=== PATIENT | female | born 1980 | race Caucasian/White ===

== ENCOUNTER 2016-09-02 21:24 | Emergency (ER) | payer BC ==
[2016-09-02 22:39] VITALS: BP 134/67
[2016-09-02] MEDS ORDERED: Lidocaine 2% PF * 5 ML VIAL INJ ONE (23:21)
[2016-09-02] MEDS ORDERED: DOXYcycline CAP(*) 100 MG PO ONE (23:21)
--- NOTE | 2016-09-02 23:34 | UC ---
Skin Complaint HPI - HPI Summary HPI Summary: got a tick on her right lower leg while at [place] today. Got the tick off but now still has the head embedded. Requests prophylaxis. - History of Current Complaint Chief Complaint: UCSkin Time Seen by Provider: 09/02/16 22:40 Stated Complaint: TICK Hx Obtained From: Patient Hx Last Menstrual Period: on seasonique Onset/Duration: Sudden Onset, Lasting Hours, Still Present Skin Exposure Onset/Duration: Hours Ago Timing: Constant Onset Severity: Moderate Current Severity: Moderate Pain Intensity: 0 Pain Scale Used: 0-10 Numeric Location: Discrete - right ant tibia Aggravating: Nothing Alleviating: Nothing Associated Signs & Symptoms: Negative: Tenderness, Red Streaks, Joint Swelling Related History: Possible Reaction to: Insect - tick - Allergy/Home Medications Allergies/Adverse Reactions: Allergies Allergy/AdvReac Type Severity Reaction Status Date / Time Penicillins [PCN] Allergy Nausea And Verified 09/02/16 22:06 Vomiting Home Medications: Home Medications Eletriptan Hydrobromide [Relpax] 20 mg PO ONCE PRN 09/02/16 [History Confirmed 09/02/16] Levonorgestrel-Ethinyl Estradi [Seasonique] 1 tab PO DAILY 09/02/16 [History Confirmed 09/02/16] Levothyroxine TAB* [Synthroid TAB*] 50 mcg PO DAILY 09/02/16 [History Confirmed 09/02/16] Topiramate [Topamax 200 mg tab] 225 mg PO DAILY 09/02/16 [History Confirmed ] ValACYclovir (*) [Valtrex 500 mg (*)] 500 mg PO DAILY 09/02/16 [History Confirmed 09/02/16] Review of Systems Constitutional: Negative Skin: Other - tick head embedded Eyes: Negative ENT: Negative Respiratory: Negative Cardiovascular: Negative Gastrointestinal: Negative Genitourinary: Negative Motor: Negative Neurovascular: Negative Musculoskeletal: Negative Neurological: Negative Psychological: Negative All Other Systems Reviewed And Are Negative: Yes PMH/Surg Hx/FS Hx/Imm Hx Previously Healthy: Yes - Surgical History Surgical History: Yes Surgery Procedure, Year, and Place: Breast reduction. Gastric Bypass. T&A - Family History Known Family History: Positive: Hypertension - Social History Occupation: Employed Full-time Lives: With Family Alcohol Use: Rare Substance Use Type: None Smoking Status (MU): Never Smoked Tobacco Physical Exam Triage Information Reviewed: Yes Appearance: Well-Appearing, No Pain Distress, Obese Vital Signs: Initial Vital Signs Temp 98.3 F 09/02/16 22:02 Pulse 93 09/02/16 22:02 Resp 14 09/02/16 22:02 BP 134/67 09/02/16 22:02 Pulse Ox 100 09/02/16 22:02 elevated BP noted Vital Signs Reviewed: Yes Eyes: Positive: Conjunctiva Clear Neck: Positive: Supple, Nontender Respiratory: Positive: No respiratory distress Cardiovascular: Positive: RRR, Pulses Normal, Brisk Capillary Refill Musculoskeletal: Positive: Strength Intact, ROM Intact Neurological: Positive: Alert, Muscle Tone Normal Psychological: Positive: Normal Response To Family Skin: Positive: Other - tick head embedded right ant tibia Course/Dx - Course Course Of Treatment: Procedure: Time out completed. Sterile technique 2% lidocaine local injection. #18 G needle and splinter forceps used to remove tick head with success. - Differential Diagnoses - Skin Complaint Differential Diagnoses: Other - foreign body removal tick exposure - Diagnoses Provider Diagnoses: tick head removal. tick exposure Discharge - Discharge Plan Condition: Stable Disposition: HOME Patient Education Materials: Lyme Disease (ED), Tick Bite (ED) Referrals: Non Staff,Doctor [Primary Care Provider] - Additional Instructions: You were given doxycycline 200mg orally as Lyme disease prophylaxis for your tick exposure. Remember to tell any provider that you had a tick exposure if you have any unexplained joint pains or rash or viral syndrome symptoms. Return to urgent care if you have any new or worsening symptoms.
== END 2016-09-03 00:07 | disposition home or self-care (01) ==
LOC: UCCORT 21:24
DX: S80.861A Insect bite (nonvenomous), right lower leg, initial encounter (principal); W57.XXXA Bitten or stung by nonvenomous insect and other nonvenomous arthropods, initial encounter; Y93.9 Activity, unspecified; Y92.9 Unspecified place or not applicable; Z88.0 Allergy status to penicillin; Z98.84 Bariatric surgery status
CPT/HCPCS: 10120; 99202; A9270-GY; G0463